=== PATIENT | female | born 1960 | race Caucasian/White ===

== ENCOUNTER → 2017-12-17 10:01 | Outpatient (CLI) | payer OTHER, SELFPAY ==
--- NOTE | 2017-12-17 | DI.MG.S_ITS ---
BILATERAL DIGITAL SCREENING MAMMOGRAM 3D/2D WITH CAD: 12/17/2017 Comparison is made to exams dated: 12/02/2016 mammogram and 11/22/2015 mammogram - [facility] Cortez. The tissue of both breasts is heterogeneously dense. This may lower the sensitivity of mammography. Current study was also evaluated with a Computer Aided Detection (CAD) system. No significant masses, calcifications, or other findings are seen in either breast. There has been no significant interval change. IMPRESSION: NEGATIVE There is no mammographic evidence of malignancy. A 1 year screening mammogram is recommended.(12/18/2018) This exam was interpreted at Station ID: [id number]. NOTE: For mammograms, a report in lay terms will be sent to the patient. Approximately 15% of breast malignancies will not be visualized mammographically. In the management of a palpable breast mass, a negative mammogram must not discourage biopsy of a clinically suspicious lesion. Electronically Signed By: David de guzman/veda:12/17/2017 11:18:14 letter sent: Normal Exam ACR BI-RADS Category 1: Negative [id number]
== END ==
DX: Z12.31 Encounter for screening mammogram for malignant neoplasm of breast (principal)
CPT/HCPCS: 77063; 77067